=== PATIENT | female | born 1960 | race Caucasian/White ===

== ENCOUNTER 2019-05-23 09:51 | Day surgery (SDC) | payer BC ==
[2019-05-21 15:57] VITALS: BMI 32.3
[2019-05-23] MEDS ORDERED: BUPIVACAINE HCL/PF 2.5 MG/ML - 30 ML VIAL IJ ONE (12:05)
[2019-05-23] MEDS ORDERED: DEXAMETHASONE SOD PHOSPHATE 4 MG/1 ML VIAL ONE (12:11)
[2019-05-23] MEDS ORDERED: ONDANSETRON 4 MG/2 ML VIAL ONE (12:11)
[2019-05-23] MEDS ORDERED: MIDAZOLAM HCL 2 MG/2 ML SINGLE DOSE VIAL ONE (12:11)
[2019-05-23] MEDS ORDERED: LIDOCAINE HCL/PF 2% SDV 5ML VIAL ONE (12:11)
[2019-05-23] MEDS ORDERED: PROPOFOL 20 ML ONE (12:11)
[2019-05-23] MEDS ORDERED: ceFAZolin SODIUM 1 GM VIAL ONE (12:30)
[2019-05-23] MEDS ORDERED: EPHEDRINE SULFATE/0.9% NACL/PF 50 MG/10 ML SYRINGE NR ONE (12:37)
[2019-05-23] MEDS ORDERED: BUPIVACAINE HCL/PF 0.25% (2.5MG/ML) 10 ML VIAL IJ ONE (12:48)
[2019-05-23] MEDS ORDERED: ONDANSETRON 4 MG/2 ML VIAL IVPUSH PRN (14:11)
[2019-05-23] MEDS ORDERED: oxyCODONE HCL 5 MG TABLET PO PRN ×2 (14:11)
[2019-05-23] MEDS ORDERED: LACTATED RINGERS SOLUTION 1,000 ML IV SCH (14:15)
[2019-05-23 15:30] VITALS: TEMP 98.2
[2019-05-23 16:04] VITALS: BP 120/58; PULSE 72
--- NOTE | 2019-05-29 14:55 | PATH ---
Surgical Pathology Report Patient Name: JOE ESPAÑA [facility]. Rec. #: [id number] /Age/Gender: 1960 (Age: 59) / F Account: [id number] [facility] Taken: 05/23/2019 Received: 05/23/2019 Reported: 05/29/2019 Physicians: Thai Uribe M.D. Specimen(s) Received RIGHT KNEE SHAVINGS Clinical History Internal derangement of right knee Final Diagnosis KNEE, RIGHT, ARTHROSCOPIC SHAVINGS: FIBROSYNOVIAL TISSUE, FIBROCOLLAGENOUS TISSUE AND CARTILAGE. Electronically Signed Michelle Mendoza M.D. Gross Description Received in formalin, labeled "right knee shavings," is a 5.0 x 3.5 x 0.4 cm. aggregate of jay-yellow soft tissue fragments. A insurance claim representative portion is submitted in one cassette. 05/26/201905/26/2019
--- NOTE | 2019-05-30 19:00 | OP ---
DATE OF OPERATION: 05/23/2019 Done at [facility] SURGEON: Thai Hernández MD GANG BORE OPERATOR: JARVIS Dacosta PREOPERATIVE DIAGNOSES: 1. Right knee medial and lateral meniscal tear. 2. Right knee cartilage injury. 3. Right knee synovitis. POSTOPERATIVE DIAGNOSES: 1. Right knee medial and lateral meniscal tear. 2. Right knee cartilage injury. 3. Right knee synovitis. PROCEDURE: 1. Right knee arthroscopy with partial meniscectomy medial and lateral meniscus, CPT code 38857. 2. Right knee arthroscopy with chondroplasty and abrasion-plasty, CPT code 21074. 3. Right knee arthroscopy with synovectomy, CPT code 51229. FINDINGS: 1. Medial meniscus [id number] horn tear. 2. Lateral meniscus posterior horn tear. 3. Synovitis patellofemoral medial and lateral notch area. 4. Grade 1-2 cartilage injury medial femoral condyle 4 cm x 2 cm. 5. ACL and PCL intact. 6. Minor grade 1-2 changes lateral joint line. 7. Central grade 2 cartilage injury patella with grade 2-3 changes medial facet patella and anterior grade 3-4 changes patellofemoral trochlea site of medial plica and synovial adhesion. PROCEDURE: Informed consent was obtained. The patient came to the operating room, where the lower extremity was prepped and draped in a sterile fashion. A tourniquet was placed on the upper thigh, but not inflated. Using standard arthroscopic technique, a lateral incision and portal was made to allow for introduction of the camera into the suprapatellar bursa. This was then taken to the medial joint line, where under direct visualization, a medial incision and portal was made. Excessive synovium noted in the medial, lateral and patellofemoral and notch area was removed by an upbiter, shaver and Bovie cautery. This was found to bring in inflammatory tissue into the joint surface, a source of pain and dysfunction. Probing of the medial and lateral meniscus found tears, as described in the findings. These were removed with the upbiter and shaver and taken back to a stable rim. Grade 2 to 3 degenerative changes were treated with a chondroplasty, removing all flaking surfaces with low-setting Bovie along the periphery to prevent further flaking. Grade 4 changes, as noted, were treated with an abrasoplasty, creating a bleeding surface at the bone/cartilage interface. Aggressive debridement with shaver/nicholas created bleeding surface. Micro fracture also done when indicated in findings. All areas of the knee were once again reexamined. The knee was then drained and a single suture was placed in all portals. A sterile dressing was placed and the patient was transferred to the recovery room without complication. The PA listed above was present and assisted at surgery. Their presence was absolutely medically necessary for the completion of the procedure. They helped hold the arthroscopy, pass instruments (and implants when indicated) and the procedure could not have been completed without their assistance. THAI HERNÁNDEZ M.D. [id number]
== END 2019-05-23 16:00 | disposition home or self-care (01) ==
LOC: FASU 09:51
PROVIDERS: ATTEND Orthopaedic Surgery
PROC: 0SBC4ZZ Excision of Right Knee Joint, Percutaneous Endoscopic Approach (ICD-10-PCS; 2019-05-23)
PROC: 0SBC4ZZ Excision of Right Knee Joint, Percutaneous Endoscopic Approach (ICD-10-PCS; 2019-05-23)
PROC: 0SBC4ZZ Excision of Right Knee Joint, Percutaneous Endoscopic Approach (ICD-10-PCS; principal; 2019-05-23 12:37)
DX: S83.241A Other tear of medial meniscus, current injury, right knee, initial encounter (principal); S83.281A Other tear of lateral meniscus, current injury, right knee, initial encounter; S83.8X1A Sprain of other specified parts of right knee, initial encounter; M65.861 Other synovitis and tenosynovitis, right lower leg; X58.XXXA Exposure to other specified factors, initial encounter; Y93.9 Activity, unspecified; Y92.9 Unspecified place or not applicable
CPT/HCPCS: 82962; 94760

== ENCOUNTER 2019-12-31 01:37 | Emergency (ER) | payer BC ==
[2019-12-31 02:13] VITALS: BMI 30.9
--- NOTE | 2019-12-31 02:18 | PDOC ---
Attending Attestation - Resident Resident Name: Sergey Gan - ED Attending Attestation I have performed the following: I have examined & evaluated the patient, The case was reviewed & discussed with the resident, I agree w/resident's findings & plan - HPI HPI: 12/31/19 02:17 see resident hpi - Physicial Exam PE: 12/31/19 02:17 see resident exam - Medical Decision Making 12/31/19 02:17 59-year-old female with right-sided abdominal pain, right upper quadrant worse than right lower quadrant Plan for bedside ultrasound and CT scan of the abdomen and pelvis Labs including troponin, CMP and CBC IV fluid normal saline EKG 12/31/19 04:53 CT scan consistent with diverticulitis involving the region of the hepatic flexure Patient was offered admission due to persistent pain and elevated white blood cell count which she is refusing secondary to COVID-19 exposure concerns We will be given Unasyn and Toradol, discharged on Augmentin with outpatient follow-up Discharge - Discharge Information Problems reviewed: Yes Clinical Impression/Diagnosis: Diverticulitis Condition: Fair - Follow up/Referral Referrals: Jose Dalton [Primary Care Provider] - - Patient Discharge Instructions - Post Discharge Activity
--- NOTE | 2019-12-31 02:35 | PDOC ---
History of Present Illness - General Chief Complaint: Pain Stated Complaint: ABD PAIN Time Seen by Provider: 12/31/19 02:15 History Source: Patient Exam Limitations: No Limitations - History of Present Illness Initial Comments: 12/31/19 02:35 Brea Benavides is a 59F with PMH NIDDM, HTN, HLD, anxiety presenting with RUQ abdominal pain. Patient had new onset RUQ abd pain 2 days ago after eating pizza for breakfast. No prior pain like this. Tolerating PO, ate a salad today without N/V but does have constipation. Non-radiating, no back pain, no urinary sx. Denies chest pain, SOB, fever, dizziness. No sick contacts at home. Denies recent trauma. No prior episodes, no history of gastritis/pancreatitis. PSH . NKDA. 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 1ppd smoker. Denies drug use. Past History - Medical History Allergies/Adverse Reactions: Allergies Allergy/AdvReac Type Severity Reaction Status Date / Time No Known Allergies Allergy Verified 12/31/19 02:12 Home Medications: Ambulatory Orders Albuterol Sulfate [Proair Hfa] 8.5 gm IH BID 05/21/19 Alprazolam [Xanax] 1 mg PO QID 05/21/19 Atenolol [Tenormin -] 50 mg PO DAILY 05/21/19 Atorvastatin Calcium [Lipitor] 10 mg PO DAILY 05/21/19 Calcium Carbonate/Vitamin D3 [Calcium 600 + Vit D Tablet] 1 each PO DAILY 05/21/19 Chlorthalidone 25 mg PO DAILY 05/21/19 Cyclobenzaprine HCl 5 mg PO HS 05/21/19 Ergocalciferol [Vitamin D2] 50,000 unit PO WEEKLY 05/21/19 Famotidine [Pepcid] 40 mg PO BID 05/21/19 Hydrocodone/Acetaminophen [Hydrocodone-Acetamin 10-325 mg] 1 each PO HS 05/21/19 Metformin HCl [Glucophage] 500 mg PO DAILY 05/21/19 Mometasone Furoate 17 gm NS DAILY PRN 05/21/19 Telmisartan [Micardis] 80 mg PO DAILY 05/21/19 Amox-Tr/K Cl [Augmentin - 875Mg Tablet] 1 tab PO TID 7 Days #21 tablet 12/31/19 Anemia: No Asthma: Yes Cancer: No Cardiac Disorders: No CVA: No COPD: No CHF: No Dementia: No Diabetes: Yes GI Disorders: Yes (GERD) Disorders: No HTN: Yes Hypercholesterolemia: No Liver Disease: No Seizures: No Thyroid Disease: No - Surgical History Abdominal Surgery: No Appendectomy: No Cardiac Surgery: No Cholecystectomy: No Lung Surgery: No Neurologic Surgery: No Orthopedic Surgery: No - Psycho-Social/Smoking History Smoking History: Smoker current status UNK Have you smoked in the past 12 months: Yes Number of Cigarettes Smoked Daily: 15 Information on smoking cessation initiated: No - Substance Abuse Hx (Audit-C & DAST Scrn) How often the patient has a drink containing alcohol: Never Score: In Men: 4 or > Positive; In Women: 3 or > Positive: 0 Screen Result (Pos requires Nsg. Audit-10AR): Negative In the last yr the pt used illegal drug/Rx for NonMed reason: No Score: Yes response is considered Positive: 0 Screen Result (Positive result requires Nsg. DAST-10): Negative Review of Systems - Review of Systems Able to Perform ROS?: Yes Constitutional: No: Chills, Weakness HEENTM: No: Symptoms Reported Respiratory: No: Symptoms reported Cardiac (ROS): No: Symptoms Reported ABD/GI: Yes: Constipated, Poor Appetite, Abdominal cramping. No: Diarrhea, Poor Fluid Intake, Rectal Bleeding : No: Symptoms Reported Musculoskeletal: No: Symptoms Reported Integumentary: No: Symptoms Reported Neurological: No: Symptoms reported Endocrine: No: Symptoms Reported Hematologic/Lymphatic: No: Symptoms Reported All Other Systems: Reviewed and Negative *Physical Exam - Vital Signs Last Vital Signs Temp Pulse Resp BP Pulse Ox 98.9 F 69 18 173/67 H 97 12/31/19 01:37 12/31/19 01:37 12/31/19 01:37 12/31/19 01:37 12/31/19 01:37 - Physical Exam General Appearance: Yes: Nourished, Appropriately Dressed, Mild Distress, Obese HEENT: positive: EOMI, JENN, Normal Voice, Symmetrical, Pharynx Normal. negative: Scleral Icterus (R), Scleral Icterus (L), Pharyngeal Erythema, Tonsillar Exudate, Tonsillar Erythema, Hearing Decreased Neck: positive: Trachea midline, Normal Thyroid, Supple. negative: Tender, Rigid, Lymphadenopathy (R), Lymphadenopathy (L) Respiratory/Chest: positive: Lungs Clear, Normal Breath Sounds. negative: Chest Tender, Respiratory Distress, Accessory Muscle Use, Crackles, Rales, Rhonchi, Stridor, Wheezing Cardiovascular: positive: Regular Rhythm, Regular Rate. negative: Murmur Gastrointestinal/Abdominal: positive: Normal Bowel Sounds, Tender (RUQ, +Arevalo), Soft. negative: Guarding, Rebound, Hernia, Mass Musculoskeletal: positive: Normal Inspection. negative: CVA Tenderness, CVA Tenderness (R), CVA Tenderness (L) Extremity: positive: Normal Capillary Refill, Normal Inspection, Normal Range of Motion, Pelvis Stable. negative: Tender, Calf Tenderness, Erythema Integumentary: positive: Normal Color, Dry, Warm. negative: Jaundice, Bruising Neurologic: positive: Fully Oriented, Alert, Normal Mood/Affect, Normal Response ED Treatment Course - LABORATORY CBC & Chemistry Diagram: 12/31/19 02:00 12/31/19 02:00 - RADIOLOGY Radiology Studies Ordered: Category Date Time Status ABDOMEN & PELVIS CT WITH CONTR [CT] Stat CT Scan 12/31/19 02:35 Ordered Medical Decision Making - Medical Decision Making 12/31/19 03:59 Patient has PMH recovered alcoholism, NIDDM, HTN, HLD presenting with RUQ pain. +Arevalo sign, remaining PE WNL, no jaundice. VSS. Evaluating for likely GB/pancreatic pathology as well as atypical ACS via CBC/CMP/CP/ECG/lactate and CTAP with IV contrast. ECG shows NSR with HR 64, QTc 453, no CARLITO or TWI. Labs notable for: - WBC 15.7 - lactic WNL - CMP WNL - trop negative - Cr 0.[address] read. 12/31/19 04:56 CT shows RUQ diverticulitis in hepatic flexure. Patient does not want to stay in hospital, would prefer to f/u outpatient. Giving Augmentin for Abx and Toradol for pain control. Once done, safe for discharge with Augmentin and GI f/u. Discharge - Discharge Information Problems reviewed: Yes Clinical Impression/Diagnosis: Diverticulitis Condition: Fair Disposition: HOME - Admission No - Additional Discharge Information Prescriptions: Amox-Tr/K Cl [Augmentin - 875Mg Tablet] 1 tab PO TID 7 Days #21 tablet - Follow up/Referral Referrals: Jose Dalton [Primary Care Provider] - Prashanth Reid MD [Staff Physician] - Jc Mcqueen DO [Staff Physician] - - Patient Discharge Instructions Patient Printed Discharge Instructions: DI for Diverticulitis Additional Instructions: Today you were evaluated for abdominal pain. Your blood shows that you have an infection, and your CT scan shows it is an infection of your intestines. We gave you antibiotics in the hospital, and are sending you home with an antibiotic called Augmentin which needs to be taken 3 times per day for a week. A referral has been given to a GI doctor, please follow-up in the next week. If you experience fever, nausea, vomiting, chest pain, or any rectal bleeding, please return to the emergency room. - Post Discharge Activity
[2019-12-31 02:48] LABS: BASO % 0.7 % (0-2.0); EOS % 1.9 % (0-4.5); HEMATOCRIT 42.8 % (32.4-45.2); HEMOGLOBIN 14.3 GM/dL (10.7-15.3); LYMPH % 19.5 % (8-40); MCH 28.9 pg (25.7-33.7); MCHC 33.4 g/dl (32.0-36.0); MEAN CELL VOLUME 86.4 fl (80-96); MONO % 7.7 % (3.8-10.2); NEUT % 70.2 % (42.8-82.8); PLATELET COUNT 215 K/MM3 (134-434); RBC 4.95 M/mm3 (3.60-5.2); RDW 13.2 % (11.6-15.6); WHITE BLOOD COUNT 15.7 K/mm3 (4.0-10.0)
[2019-12-31] MEDS ORDERED: ACETAMINOPHEN 1000 MG/100 ML VIAL (NON FORMULARY) IVPB ONE (03:04)
[2019-12-31] MEDS ORDERED: ACETAMINOPHEN INJECTION 100 ML IVPB ONE (03:05)
[2019-12-31 03:13] LABS: ALBUMIN 3.5 g/dl (3.4-5.0); ANION GAP 8 MMOL/L (8-16); BILIRUBIN,TOTAL 0.2 mg/dL (0.2-1); BLOOD UREA NITROGEN 8.9 mg/dL (7-18); CALCIUM 9.1 mg/dL (8.5-10.1); CHLORIDE 100 mmol/L (98-107); CO2 29 mmol/L (21-32); CREATININE 0.6 mg/dL (0.55-1.3); GLUCOSE,RANDOM 126 mg/dL (74-106); LIPASE 98 U/L (73-393); POTASSIUM 3.7 mmol/L (3.5-5.1); SGOT/AST 14 U/L (15-37); SGPT/ALT 18 U/L (13-61); SODIUM 137 mmol/L (136-145)
[2019-12-31 03:17] LABS: ALK PHOS 98 U/L (45-117); TOT PROT 6.5 g/dl (6.4-8.2)
[2019-12-31] MEDS ORDERED: KETOROLAC TROMETHAMINE 30 MG/1 ML VIAL IVPUSH ONE (04:53)
[2019-12-31] MEDS ORDERED: AMPICILLIN NA/SULBACTAM NA 3 GM in SODIUM CHLORIDE 100 ML IVPB ONE (04:54)
[2019-12-31] MEDS ORDERED: KETOROLAC TROMETHAMINE 30 MG/1 ML VIAL ONE (04:58)
[2019-12-31] MEDS ORDERED: AMOX TR/POT CLAV 875MG/125MG TABLETS (FP) PO ONE (05:04)
[2019-12-31] MEDS ORDERED: AMOX TR/POT CLAV 875MG/125MG TABLETS (FP) ONE (05:06)
[2019-12-31 05:11] LABS: CHOLESTEROL 187 mg/dL (50-200); HDL CHOLESTEROL 38 mg/dL (40-60); LDL CHOLESTEROL (ONLY SJRH) 126 mg/dL (5-100); TRIGLYCERIDES 197 mg/dL (0-150)
[2019-12-31 05:25] VITALS: BP 154/72; PULSE 70; TEMP 98.6
[2019-12-31 06:05] LABS: PH,URINE 7.5 (5.0-8.0); URINE APPEARANCE CLEAR; URINE BILIRUBIN NEGATIVE (NEGATIVE); URINE COLOR YELLOW; URINE GLUCOSE (UA) NEGATIVE (NEGATIVE); URINE KETONE NEGATIVE (NEGATIVE); URINE LEUK ESTERASE N (NEGATIVE); URINE NITRITE NEGATIVE (NEGATIVE); URINE PROTEIN N (NEGATIVE); URINE UROBILINOGEN 0.2 mg/dL (0.2-1.0)
--- NOTE | 2019-12-31 09:18 | EKG ---
Test Reason : Blood Pressure : / mmHG Vent. Rate : 064 BPM Atrial Rate : 064 BPM P-R Int : 164 ms QRS Dur : 092 ms QT Int : 440 ms P-R-T Axes : 047 063 047 degrees QTc Int : 453 ms NORMAL SINUS RHYTHM NORMAL ECG WHEN COMPARED WITH ECG OF 08-JAN-2010 16:53, NO SIGNIFICANT CHANGE WAS FOUND Confirmed by MD KAREN, CRUZITO ([id number]) on 12/31/2019 9:17:52 AM Referred By: Confirmed By:CRUZITO JONES MD
== END 2019-12-31 05:27 | disposition home or self-care (01) ==
LOC: JER 01:37
PROC: 3E0333Z Introduction of Anti-inflammatory into Peripheral Vein, Percutaneous Approach (ICD-10-PCS; principal; 2019-12-31)
PROC: 3E033GC Introduction of Other Therapeutic Substance into Peripheral Vein, Percutaneous Approach (ICD-10-PCS; 2019-12-31)
DX: K57.92 Diverticulitis of intestine, part unspecified, without perforation or abscess without bleeding (principal)
CPT/HCPCS: 36415; 74177-TC; 80053; 80061; 81003; 82550; 83605; 83690; 83721; 84484; 85025; 87086; 93005; 93010; 99285-25; J0131